=== PATIENT | female | born 1955 | race Caucasian/White ===

== ENCOUNTER → 2018-07-31 15:11 | Outpatient (CLI) | payer BC, SELFPAY ==
--- NOTE | 2018-07-31 15:05 | MRI_ITS ---
STUDY: MRI RIGHT KNEE REASON FOR EXAM: Female, 63 years old. Medial pain. Hyperextension. TECHNIQUE: Standardized fat and water weighted pulse sequences were obtained in all 3 orthogonal planes. COMPARISON: X-ray March 17, 2017 FINDINGS: There is attrition of the free edge of the medial meniscus without a demonstrated meniscal tear. There is diffuse, greater than 50% thickness articular cartilage loss of the medial femorotibial compartment. Normal medial femoral condyle and tibial plateau. Normal medial collateral ligamentous complex (MCL). Normal distal semimembranosus, gracilis and semitendinosus tendons. Normal lateral meniscus. There is diffuse, greater than 50% thickness articular cartilage loss of the lateral femorotibial compartment. Normal lateral femoral condyle and tibial plateau. Normal proximal tibiofibular articulation. Normal lateral collateral (fibular) ligament. Normal popliteus tendon. Normal biceps femoris tendon. Normal anterior cruciate ligament (ACL). Normal posterior cruciate ligament (PCL). There is arthrosis of the patellofemoral articulation. There is diffuse, less than 50% thickness articular cartilage loss of the patellofemoral compartment. Normal medial and lateral patellar retinaculum. Normal quadriceps tendon. Normal patellar tendon. Normal Hoffa's fat pad. There is a small volume joint effusion. The soft tissues are unremarkable. The otherwise visualized osseous structures are unremarkable. MRI/Lower Ext Joint Only (Routine) IMPRESSION: Degenerative change with thinning of the cartilage. There is fraying and attrition of the free edge of the medial meniscus. Electronically Signed: Pollo Killian MD at 16:25 EST , Service support ,
== END ==
PROVIDERS: Referring Provider Orthopaedic Surgery; Visit Provider Orthopaedic Surgery
DX: S83.241A Other tear of medial meniscus, current injury, right knee, initial encounter (principal)
CPT/HCPCS: 73721

== ENCOUNTER 2018-08-30 12:27 | Day surgery (SDC) | payer BC, SELFPAY ==
[2018-08-30 12:45] VITALS: BP 154/75; PULSE 59; RESP 16; TEMP 36.8; O2SAT 99; BMI 32.6
--- NOTE | 2018-08-30 17:22 | PCM.DC.ORTHO ---
Discharge Diet: No Restrictions - remove dressings in 4 days and apply bandaids to incision sites, wbat right leg, may get incision wet after 4 days, follow up with ramona aguilar in 2 weeks, call with concerns Discharge Activity: May Not Drive May shower in (days): 1 Ice area for (Minutes): 20 - Every hour while awake. Weight Bearing Status: Weight bearing as tolerated Keep extremity elevated above heart level: Operative Extremity Call your doctor if your incision/area has: Continuous Slow Oozing, Sudden Increased Bleeding, Increased Pain/ Swelling, Increased Redness, Foul Smelling Discharge Call your doctor if you observe: Fever of 101 or Higher, Coldness, Increased Pain, Numbness or Tingling, Change in Color, Calf discomfort Allergies/Adverse Reactions: Allergies amoxicillin Allergy (Verified 08/28/18 11:32) yeasty Medications to take at Discharge Hydrocodone Bitart/Apap 5-325 [[place] 5MG-325MG] 1 - 2 tablet PO Q6H PRN PRN 5 Days #40 tablet 08/30/18 Ondansetron [Zofran] 8 mg PO Q8H PRN PRN #20 tablet 08/30/18 The following prescriptions were given: Hydrocodone Bitart/Apap 5-325 [[place] 5MG-325MG] 1 - 2 tablet PO Q6H PRN PRN 5 Days #40 tablet PRN Reason: Pain Ondansetron [Zofran] 8 mg PO Q8H PRN PRN #20 tablet PRN Reason: Nausea Primary Care Physician: Care Physician,No Primary [Primary Care Provider] - Test Results: Test results from this visit will be discussed in further detail at your follow-up appointment, if applicable. Please Follow Up With: Leelee Christiansen, - [phone]
--- NOTE | 2018-08-30 17:23 | OP.PCM_ITS ---
Report of Operation Date of Procedure: 08/30/18 Pre-Operative Diagnosis: right knee medial meniscus tear, osteoarthritis Post-Operative Diagnosis: same Surgery/Procedure Performed:: sark, pmm, mfc chodnroplasty Type of Anesthesia:: General Anesthesiologist: Jaxon Villalpando Estimated Blood Loss (mL): none Fluids Replaced: 600cc lr Description of Procedure: Preoperative note Patient is a 63-year-old female with continued right knee pain. Patient failed conservative treatment. MRI confirms medial meniscus tear and arthritis. Risks benefits alternatives surgery discussed with patient. Risks including but not limited to blood loss, blood clot, infection, neurovascular, failure procedure, loss of life and loss of limb. Patient is having continued medial medial knee pain elected proceed with right knee arthroscopy repair is indicated. Operative note Patient seen and examined preoperative holding area. Right knee was marked. Patient brought to the operating placed supine on the operating table. Signing, anesthesia, antibiotics were administered. The right leg was prepped and draped in usual sterile fashion with tourniquet around her upper thigh. All bony bony prominences well-padded SCDs placed on her contralateral limb. We then marked out her incisions for anterior lateral anterior portal portal placement. The right leg was elevated exsanguinated and tourniquet was raised her pressure of 250 torr. Timeout was performed. We then created an anterior lateral portal with an 11 blade. We began our diagnostic arthroscopy. Patellofemoral joint was intact there was some fibrillated changes on the inferior pole moved to the medial joint line we created anterior medial portal under direct visualization. There is a fraying of the posterior horn of the medial meniscus we resected this back gently with a shaver and a basket to a stable rim. She also had a large medial femoral condyle defect about 3 x 3 grade 3 on her medial femoral condyle. This was loose and loose cartilage pieces were gently debrided back. The ACL PCL were present within the notch. She had a 3 x 2 cm defect of her lateral femoral condyle as well which was left along his nose no unstable pieces. Her lateral meniscus or lateral tibial plateau had some grade 2 changes and some thinning but this again we did nothing for this at the time. There is no. There is nothing unstable. We then irrigated the knee with copious nonsterile saline. Again we had turned back to chondroplasty of the medial femoral condyle and a partial medial meniscectomy. Portals were closed with interrupted 4-0 nylon stitches tourniquet was deflated for total working time of 40 minutes. Sterile dressings were applied patient tired procedure procedure well there are no comp occasions transferred recovery room in stable condition. Postoperative note Weight-bear as tolerated right leg We will discuss pictures in 2 weeks with family Family forgot to bring their money so unable to obtain prescriptions today Call with increased pain numbness tingling further as arise This note was generated with [employer] dictation software. It may contain incorrect words, spelling, and punctuation that were not noted in checking the note before signing.
[2018-08-30] MEDS: Cefazolin 2 GM in 0.9% Normal Saline 100 ML IV (17:38)
[2018-08-30] MEDS: Bupiv/Epi 0.5% Mpf 30 ML Vial (18:21)
[2018-08-30] MEDS: Mupirocin Ointment 22gm Tube 1 APPLIC (18:21)
[2018-08-30 18:25] VITALS: BP 132/76; BP 154/75; PULSE 75; RESP 16; TEMP 36.3; O2SAT 95
[2018-08-30 18:45] VITALS: BP 137/45; BP 154/75; PULSE 60; RESP 16; O2SAT 95
[2018-08-30 19:00] VITALS: BP 144/73; BP 154/75; PULSE 52; RESP 16; TEMP 36.6; O2SAT 92
[2018-08-30 21:08] VITALS: BP 131/69; BP 154/75; PULSE 53; RESP 16; TEMP 37.3; O2SAT 94
== END 2018-08-30 21:32 | disposition home or self-care (01) ==
LOC: SDC 12:28 → AC 12:29
PROVIDERS: Referring Provider Orthopaedic Surgery; Visit Provider Orthopaedic Surgery
PROC: (CPT 29870; principal; 2018-08-30 14:30)
DX: M17.11 Unilateral primary osteoarthritis, right knee (principal); S83.241A Other tear of medial meniscus, current injury, right knee, initial encounter; X58.XXXA Exposure to other specified factors, initial encounter; Y93.9 Activity, unspecified; Y92.9 Unspecified place or not applicable; Y99.9 Unspecified external cause status
CPT/HCPCS: 29881; J7120; J2405

== ENCOUNTER → 2020-08-15 13:03 | Outpatient (CLI) | payer BC, SELFPAY ==
--- NOTE | 2020-08-15 13:04 | MRI_ITS ---
STUDY: MRI LEFT SHOULDER REASON FOR EXAM: Female, 65 years old. Left shoulder pain with decreased range of motion. TECHNIQUE: Standardized fat and water weighted pulse sequences were obtained in all 3 orthogonal planes. COMPARISON: Left shoulder x-rays dated 07/22/2020. FINDINGS: Mild supraspinatus, infraspinatus and subscapularis tendinosis. No full-thickness tear is present (coronal series 4 images 6-15, axial series 2 images 9-12). Normal teres minor tendon. Normal supraspinatus muscle. Normal infraspinatus muscle. Normal subscapularis muscle. Normal teres minor muscle. Mild thinning of the articular cartilage of the glenohumeral joint with a glenohumeral joint effusion (axial series 2 images 8-12). Cystic change in the humeral head (coronal series 4 image 8). Normal biceps labral complex. Normal intracapsular long biceps tendon. Normal labrum. Normal capsulo- ligamentous complex. Normal rotator interval. Minimal acromioclavicular joint hypertrophy without significant narrowing of the subacromial space (sagittal series 6 images 8-12). There is a Type II morphology (curved), with a neutral orientation. There is no subacromial-subdeltoid bursal fluid. Normal visualized coracohumeral and coracoacromial ligaments. Normal quadrilateral space. Normal axillary space. Normal deltoid muscle. Normal trapezius muscle. MRI/Upper Ext Joint Only(Routine) IMPRESSION: Minimal supraspinatus, infraspinatus and subscapularis tendinosis without a full-thickness tear. Mild thinning of the articular cartilage of the glenohumeral joint. Cystic change in the humeral head. Minimal acromioclavicular joint hypertrophy without significant narrowing of the subacromial space. Small glenohumeral joint effusion. Electronically Signed: Jarrod Rao MD at 14:31 EST , Service support ,
== END ==
PROVIDERS: PCP Family Medicine; Referring Provider Orthopaedic Surgery; Visit Provider Orthopaedic Surgery
DX: M75.42 Impingement syndrome of left shoulder (principal); M75.51 Bursitis of right shoulder
CPT/HCPCS: 73221